=== PATIENT | male | born 1985 | race Caucasian/White ===

== ENCOUNTER → 2021-03-15 13:47 | Outpatient (CLI) | payer OTHER, SELFPAY ==
--- NOTE | 2021-03-15 13:51 | DI.CT.S_ITS ---
PROCEDURE: CT ABDOMEN PELVIS WO/W CON INDICATIONS: Other hydronephrosis TECHNIQUE: Optional 5 mm thick noncontrast images acquired from the diaphragm to the symphysis pubis. After the administration of intravenous contrast, 5 mm thick images acquired from the diaphragm to the symphysis pubis after a 10-minute delay. 2 mm thick coronal and sagittal reformats were then performed of the kidneys and ureters. For radiation dose reduction, the following was used: automated exposure control, adjustment of mA and/or kV according to patient size. COMPARISON: Outside Film, CT, CT ABDOMEN PELVIS WITHOUT CONTRAST, 02/24/2021, 14:40. FINDINGS: Image quality: Excellent. Lung bases: Lung bases are clear. Heart size is normal. Urinary system: Both kidneys are normal in size, without hydronephrosis or nephrolithiasis on pre-contrast images. No perinephric fat stranding. There is normal bilateral renal enhancement. No renal stones identified. There is moderate right-sided hydronephrosis and dilatation of the left ureter with transition to normal caliber ureter in the mid pelvis where the right ureter crosses the right common iliac artery. Focal ureteral wall thickening in the right ureter at the transition zone is less apparent in the current study compared to prior study obtained February 24, 2021 and there are diminished inflammatory changes adjacent to the ureter at this level. There is absence of contrast opacification of the right ureter secondary to obstruction. There is normal contrast opacification of the left ureter. Yet left ureter follows a normal course has normal caliber. No filling defects identified within the left renal collecting system. Bladder wall thickness is normal. No calcified bladder stones. Other solid organs: Liver is normal in size and enhancement. Diffuse fatty infiltration of the liver. Gallbladder is within normal limits. Biliary system is non dilated. Pancreas enhances normally. Spleen is normal in size and enhancement. No adrenal nodules. Peritoneum and bowel: Bowel loops demonstrate normal wall thickness and caliber. Right colon and terminal ileum mural fatty metaplasia stable compared to the prior exam. No free fluid or air. Nodes and vessels: No retroperitoneal or mesenteric adenopathy by size criteria. Aorta and inferior vena cava are normal in size. Abdominal wall: No ventral hernias. Pelvis: No pathologic free pelvic fluid. No inguinal hernias or adenopathy. Bones: No suspicious bony lesions. Small rounded sclerotic foci in the proximal femurs stable compared to prior exam may represent bone islands. No vertebral body compression fractures. IMPRESSION: 1. Moderate right-sided hydroureteronephrosis slightly diminished in severity compared to February 24, 2021. Focal ureteral wall prominence and mild inflammation involving the distal right ureter persists, but has decreased compared to prior exam. Finding could represent inflammatory stricture or neoplastic process. Recommend retrograde imaging for opacification of the right ureter at the area of interest. 2. Right colon and terminal ileum mural fatty metaplasia. Finding is nonspecific but can be associated with inflammatory bowel disease. 3. Hepatic steatosis. Dictated by: Loraine Rodriguez MD, PhD on 03/15/2021 at 15:52 Approved by: Loraine Rodriguez MD, PhD on 03/15/2021 at 16:05
== END ==
PROVIDERS: PCP Physician Assistant Medical; Referring Provider Physician Assistant Medical; Visit Provider Physician Assistant Medical
DX: N13.39 Other hydronephrosis (principal); K76.0 Fatty (change of) liver, not elsewhere classified
CPT/HCPCS: 74178

== ENCOUNTER → 2021-03-26 14:13 | Outpatient (CLI) | payer OTHER, SELFPAY ==
--- NOTE | 2021-03-26 | DI.NM.S_ITS ---
PROCEDURE: NM RENAL FUNCTION W LASIX RADIOPHARMACEUTICAL: 10.3 mCi Tc-99m MAG3 IV and 40 mg furosemide IV. INDICATIONS: Unspecified hydronephrosis TECHNIQUE: The patient was hydrated orally before the examination was begun. After intravenous administration of Tc-99m MAG3, posterior abdominal radionuclide angiogram and sequential (1 minute each frame) renal images were obtained. A time-activity curve for each kidney was generated and analyzed. To evaluate for obstruction, the patient was given 40 mg furosemide via slow intravenous injection after the start of the examination. Sequential images were obtained for up to an additional 20 minutes. COMPARISON: [facility], CT, CT ABDOMEN PELVIS WO/W CON, 03/15/2021, 13:54. Outside Film, CT, CT ABDOMEN PELVIS WITHOUT CONTRAST, 02/24/2021, 14:40. FINDINGS: Perfusion: There is normal vascular flow to both kidneys. Morphology: Both kidneys are normal in size and shape. The right renal collecting system is dilated. The ureters and bladder fill with tracer, and appear normal. Function: The right kidney kidney demonstrates delayed cortical tracer uptake, with [id number] activity ranging greater than 5 minutes. The left kidney kidney demonstrates normal cortical tracer uptake and excretion, with [id number]-[id number] activity at 3 minutes. The right kidney contributes 30.2% of total renal function. The left kidney contributes 69.8% of total renal function. Lasix stimulation: After diuretic administration, mildly delayed clearance of activity from the right renal collecting system. The half-time of emptying tracer activity from the right pelvicaliceal system is approximately 15 minutes. There is prompt clearance of tracer activity from the renal collecting by the left kidney. The half-time of emptying from the left pelvicaliceal system is 8.4 minutes. Normal emptying half-times are less than 10 minutes; borderline ranges are from 10 to 20 minutes. IMPRESSION: 1. Moderately right hydronephrosis consistent with right UPJ obstruction. The T1/2 for the right kidney is approximately 15 minutes. There is moderately decreased right renal function. 2. Normal left renal function. 3. The right kidney contributes 30.2% of total renal function. The left kidney contributes 69.8% of total renal function. Dictated by: Barney Acevedo M.D. on 03/27/2021 at 10:59 Approved by: Barney Acevedo M.D. on 03/27/2021 at 12:01
== END ==
PROVIDERS: PCP Physician Assistant Medical; Referring Provider Urology; Visit Provider Urology
DX: N13.30 Unspecified hydronephrosis (principal)
CPT/HCPCS: 78708; A9562

== ENCOUNTER → 2021-04-05 10:30 | Outpatient (CLI) | payer OTHER, SELFPAY ==
[2021-04-05 11:17] LABS: COVID19 -Nasal RAPID Negative (Negative)
== END ==
PROVIDERS: PCP Physician Assistant Medical; Visit Provider Family Medicine Sleep Medicine
DX: Z20.822 Contact with and (suspected) exposure to COVID-19 (principal)
CPT/HCPCS: 87635; C9803

== ENCOUNTER → 2021-07-16 15:32 | Outpatient (CLI) | payer OTHER, SELFPAY | PROVIDERS: PCP Physician Assistant Medical; Referring Provider Family Medicine; Visit Provider Family Medicine | DX: R10.9 Unspecified abdominal pain (principal); S49.91XA Unspecified injury of right shoulder and upper arm, initial encounter; Z53.20 Procedure and treatment not carried out because of patient's decision for unspecified reasons ==

== ENCOUNTER → 2021-07-20 13:38 | Outpatient (CLI) | payer OTHER, SELFPAY ==
--- NOTE | 2021-07-20 13:40 | DI.MRI.S_ITS ---
PROCEDURE: MR ABDOMEN PELVIS WO CON, utilizing coronal T2 haste, in-phase and him-qf-jdvak gradient T1 imaging. Fat suppressed T1 imaging was performed, and volume acquisition imaging in coronal plane through the retroperitoneum also was obtained. T1 vibe imaging and coronal haste imaging through the lower abdomen and pelvis were obtained, with additional axial T1 and T2 scanning through the abdomen inferiorly and the pelvis. COMPARISON: [facility], [place], [place] RENAL FUNCTION W LASIX, 03/26/2021, 14:28. Outside Film, CT, CT ABDOMEN PELVIS WITHOUT CONTRAST, 02/24/2021, 14:40. [facility], CT, CT ABDOMEN PELVIS WO/W CON, 03/15/2021, 13:54. INDICATIONS: Unspecified abdominal pain FINDINGS: The prior CT scanning had raised significant concern for right renal collecting system and ureteral dilatation. A subsequent nuclear medicine renogram reports resolution of the ureteral dilatation on the right, and asymmetric reduced right renal function. Approximately 30% of total renal function is provided from the right kidney. The current study shows [id number] right-sided hydronephrosis but no dilatation or mass at the ureteral pelvic junction or calculus in that area. The right ureter is no longer dilated from the ureteropelvic junction inferiorly. The left ureter and collecting system is not dilated, and the bladder appears normal. The appearance is consistent with a long-standing ureteropelvic junction stenosis, but without mass lesion involving the distal ureter as the underlying cause of the prior right-sided hydronephrosis and hydroureter from earlier CT scanning. Note is made of prominent signal suppression on out of phase gradient T1 imaging consistent with fat infiltration throughout the liver, prominent. Hepatic steatosis without mass lesion is the presumed cause. Through the abdomen and pelvis no vascular or lymph node abnormality is found. IMPRESSION: 1. Resolution of CT-detected hydroureter, but there is a persistent pattern of ureteropelvic junction stenosis given persistence of mild to moderate right-sided hydronephrosis. 2. Prominent hepatic steatosis, etiology indeterminate. Dictated by: Ambrocio Luo M.D. on 07/22/2021 at 14:42 Approved by: Ambrocio Luo M.D. on 07/22/2021 at 14:57
== END ==
PROVIDERS: PCP Physician Assistant Medical; Referring Provider Family Medicine; Visit Provider Family Medicine
DX: R10.9 Unspecified abdominal pain (principal); N13.5 Crossing vessel and stricture of ureter without hydronephrosis; K76.0 Fatty (change of) liver, not elsewhere classified
CPT/HCPCS: 72195

== ENCOUNTER 2022-03-20 16:03 | Emergency (ER) | payer OTHER, SELFPAY ==
[2022-03-20] VITALS (23 sets, daily range): BP systolic 73–95; BP diastolic 40–55; PULSE 65–78; RESP 12–46; TEMP 35.6–36.2; O2SAT 97–100
[2022-03-20] MEDS: PANTOPRAZOLE 40 MG VIAL IV (16:53)
[2022-03-20] MEDS: OCTREOTIDE 100 MCG/ML VIAL IV (16:53)
[2022-03-20] MEDS: SODIUM CHLORIDE 0.9% 1,000 ML 150 ML IV (16:54)
[2022-03-20] MEDS: SODIUM CHLORIDE 0.9% 1,000 ML 1000 ML IV (16:54)
[2022-03-20 17:15] LABS: Hemoglobin 8.5 g/dL (13.5-17.5); Mean Corpuscular HGB Conc 35.3 % (30-36); Mean Corpuscular Hemoglobin 35.3 PG (26-34); Platelet Count 226 X10^3/uL (150-400); Red Blood Cell Count 2.41 X10^6/uL (4.5-5.9); Red Cell Distribution Width 16.2 % (11.6-14.8); White Blood Cell Count 9.4 X10^3/uL (4.5-11.0)
[2022-03-20 17:16] LABS: Add Manual Diff / Slide Review YES; Hematocrit 24.1 % (41-53)
[2022-03-20 17:18] LABS: PTT Partial Thromboplastin Tim 47 SECONDS (26.4-36.2)
--- NOTE | 2022-03-20 17:21 | ED_ITS ---
HPI - Weakness General Chief complaint: Weakness Stated complaint: Yellow Skin/Weakness/Dizziness/Not Eating or Sleep Time Seen by Provider: 03/20/22 16:22 Source: patient Mode of arrival: Wheelchair Limitations: other (He is not answering most questions.) History of Present Illness HPI Narrative: Patient is 36-year-old member the [employer]. He drinks large amounts of alcohol daily. He was recently discharged on a medical board. His just returned home. He is jaundiced. He says he quit drinking. He has dried blood in his nose and mouth. He says he is vomiting, he says he did not vomit blood. He ar merlyn with his , due to the jaundice. We have no medical records. She reports that he has 5 white matter lesions on his brain, possibly MS. 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 Diagnosis is not yet clarified. He takes amlodipine for hypertension, he has no other prescription medications. He denies experiencing GI bleeds in the past. Related Data Home Medications Medication Instructions Recorded Confirmed lisinopril 20 mg tablet 20 mg PO DAILY 02/05/21 02/05/21 Allergies Allergy/AdvReac Type Severity Reaction Status Date / Time No Known Drug Allergies Allergy Verified 03/20/22 16:29 Review of Systems Review of Systems Narrative: History of primary from the , although the patient does speak briefly. No additional details are available. Patient History Medical History (Updated 03/20/22 @ 20:41 by Sylvester Gonzalez MD) Colon polyps Essential hypertension Excessive daytime sleepiness Fatigue due to sleep pattern disturbance Obstructive sleep apnea, adult Snoring Surgical History (Updated 03/20/22 @ 18:02 by Sylvester Gonzalez MD) H/O colonoscopy Family History Family/Other Hypertension Dementia Mother Insomnia Restless leg Hypertension Anxiety Family/Other Insomnia Social History Smoking Status: Former smoker Smoking Status: Former smoker alcohol intake frequency: 3 or more drinks per day Exam Initial Vital Signs Initial Vital Signs: Vital Signs Blood Pressure 82/47 L 03/20/22 16:25 Const General: acute distress and ill appearing Nutritional Appearance: average body habitus HENMT Head: normocephalic and atraumatic Ears: TM's normal bilaterally Nose: other (Dried blood, both nares) Face and sinus: normal facial exam Mouth: other (Old blood in his gums and teeth. No acute bleeding. No oral lesions.) Teeth and gingiva: dentition normal Throat: posterior oropharynx normal Eyes Conjunctivae: other (Icterus is present) Sclera: scleral abnormality Pupils: PERRL EOM: EOM intact bilaterally Neck Neck: No lymphadenopathy and No JVD Thyroid: thyroid normal Chest Chest: normal inspection of the chest Resp Auscultation: clear to auscultation bilaterally Cardio Rate: regular rate Rhythm: regular rhythm Heart Sounds: S1 normal, S2 normal, no click and no murmurs GI Other: Slight upper abdominal tenderness without distention, guarding or rebound. Palpable hepatosplenomegaly. Normal bowel sounds. Rectal exam: Normal rectal tone. Melena is present. Guaiac positive. Back/Spine/Pelvis Back: normal to inspection Skin General: jaundice Neuro General: patient alert, patient oriented x3 and no focal motor deficits Speech: speech normal (However, communication is normal.) Extrem General: no pedal edema and no calf tenderness Course Course Course Narrative: The patient arrives with jaundice, hypotension (sys BP 80) in blood in his mouth and nares. He is guaiac positive. He was immediately managed for bleeding varices. Multiple IVs were obtained. Was giving Protonix. Octeratide bolus followed by a drip was started. Zosyn was given. Normal saline bolus was initiated, replaced with LR once hypernatremia was discovered. 2 units PRBC, and FFP were ordered. Calcium gluconate was given. Head CT is benign. His noncontrast CT of chest/abdomen/ pelvis reveals severe hepatomegaly. H/H initially 8.5/24.1 decreased to 7.6/21.5 with hydration. This is likely dilution with the IV fluids given. Transfusions had already been initiated. The patient has multiple elect in the right abnormalities, renal failure, and significant elevated LFTs. His lactic acid level is elevated. His blood pressure improved to 86 prior to transfer. Pressors are contraindicated. There has been no suggestive acute bleeding during his ER stay. The patient needs to be in a facility with an color drum worker, as well as a steamblaster. [facility] in [place] was contacted. The patient was discussed with Dr. Gómez, color drum worker. The patient has been accepted in transfer. Orders Ordered: ED Orders 04/21/22 16:15 Ammonia (NH3) Stat Complete Blood Count AUTO DIFF Stat Comprehensive Metabolic Panel Stat ETOH [Ethanol (ETOH)] Stat FFP [Fresh Frozen Plasma] Stat Lactate (Lactic Acid) Stat Lipase Stat PRBC [Packed Cells] Stat PTT [Partial Thromboplastin Time] Stat Prothrombin Time INR Stat Type and Screen Stat 03/20/22 16:35 COVID19 -Nasal RAPID/Pre-Proc Stat 03/20/22 17:45 CT head/brain wo con Stat 03/20/22 17:54 CT chest abd pel wo con Stat 03/20/22 18:20 CBC Auto Diff [Complete Blood Count AUTO DIFF] Stat 03/20/22 19:00 ABG [Arterial Blood Gas] Stat Sodium Chloride (Normal Saline 0.9%) 1,000 mls @ 150 mls/hr IV CONT LUPE Last Infusion: 03/20/22 20:13 Dose: 0 mls/hr Documented by: Admin: 03/20/22 16:54 Dose: 150 mls/hr Documented by: MARYBETH Sodium Chloride (Normal Saline 0.9%) 1,000 mls @ 1,000 mls/hr IV BOLUS PRN PRN Reason: Fluid replacement Last Infusion: 03/20/22 19:08 Dose: 0 mls/hr Documented by: Admin: 03/20/22 16:54 Dose: 1,000 mls/hr Documented by: MARYBETH Octreotide Acetate 500 mcg/ (Sodium Chloride) 101 mls @ 5.05 mls/hr IV CONT LUPE ; Protocol Last Infusion: 03/20/22 20:13 Dose: 0 mcg/hr, 0 mls/hr Documented by: Admin: 03/20/22 17:29 Dose: 25 mcg/hr, 5.05 mls/hr Documented by: ZARA Discontinued Medications Ceftriaxone Sodium 2,000 mg/ (Sodium Chloride) 100 mls @ 200 mls/hr IV NOW ONE Stop: 03/20/22 17:14 Last Admin: 03/20/22 17:41 Dose: Not Given Documented by: ZARA Piperacillin Sod/Tazobactam (Sod 4.5 gm/ Sodium Chloride) 100 mls @ 200 mls/hr IV NOW ONE Stop: 03/20/22 17:42 Last Infusion: 03/20/22 19:23 Dose: 0 mls/hr Documented by: Admin: 03/20/22 18:34 Dose: 200 mls/hr Documented by: ZARA Lactated Ringer's (Lactated Ringers) 1,000 mls @ 1,000 mls/hr IV BOLUS ONE Stop: 03/20/22 19:48 Last Infusion: 03/20/22 20:14 Dose: 0 mls/hr Documented by: Admin: 03/20/22 19:24 Dose: 1,000 mls/hr Documented by: ZARA Calcium Gluconate 4.65 meq/ (Sodium Chloride) 60 mls @ 180 mls/hr IV NOW ONE Stop: 03/20/22 19:09 Last Infusion: 03/20/22 19:47 Dose: 0 mls/hr Documented by: Admin: 03/20/22 19:22 Dose: 180 mls/hr Documented by: ZARA Octreotide Acetate (Octreotide 100 Mcg/Ml Vial) 100 mcg IV NOW ONE Stop: 03/20/22 16:41 Last Admin: 03/20/22 16:53 Dose: 100 mcg Documented by: MARYBETH Octreotide Acetate (Octreotide 100 Mcg/Ml Vial) 50 mcg IV Q1HR LUPE Last Admin: 03/20/22 20:17 Dose: Not Given Documented by: MARYBETH Pantoprazole Sodium (Pantoprazole 40 Mg Vial) 40 mg IV NOW ONE Stop: 03/20/22 16:39 Last Admin: 03/20/22 16:53 Dose: 40 mg Documented by: MARYBETH Vital Signs Vital signs: Vital Signs - 8 hr 03/20/22 16:25 03/20/22 16:27 03/20/22 16:29 Temperature 96.0 F L Pulse Rate 78 73 Respiratory Rate 17 12 Blood Pressure 82/47 L 84/50 L 84/50 L Pulse Oximetry 99 100 03/20/22 16:30 03/20/22 16:38 03/20/22 16:45 Temperature Pulse Rate 74 70 69 Respiratory Rate 15 17 16 Blood Pressure 80/46 L 81/48 L 78/48 L Pulse Oximetry 100 100 100 03/20/22 17:00 03/20/22 17:15 03/20/22 17:30 Temperature Pulse Rate 71 65 67 Respiratory Rate 22 46 H 36 H Blood Pressure 90/51 L 76/40 L 73/40 L Pulse Oximetry 99 99 99 03/20/22 17:45 03/20/22 17:56 03/20/22 18:00 Temperature Pulse Rate 72 76 77 Respiratory Rate 20 26 H 22 Blood Pressure 83/46 L 86/48 L 88/51 L Pulse Oximetry 99 100 99 03/20/22 18:12 03/20/22 18:15 03/20/22 18:30 Temperature Pulse Rate 74 72 75 Respiratory Rate 13 13 12 Blood Pressure 92/55 L 92/54 L 95/52 L Pulse Oximetry 99 99 98 03/20/22 18:45 03/20/22 18:50 03/20/22 18:59 Temperature 96.7 F L 97.2 F L Pulse Rate 72 71 71 Respiratory Rate 22 28 H 14 Blood Pressure 86/53 L 86/53 L 90/51 L Pulse Oximetry 98 03/20/22 19:00 03/20/22 19:15 03/20/22 19:30 Temperature Pulse Rate 71 72 72 Respiratory Rate 24 22 16 Blood Pressure 90/54 L 81/45 L 81/47 L Pulse Oximetry 97 98 98 03/20/22 19:45 03/20/22 19:54 Temperature Pulse Rate 74 74 Respiratory Rate 14 16 Blood Pressure 89/51 L 94/50 L Pulse Oximetry 98 98 MDM - Weakness Lab Data Result diagrams: 03/20/22 18:20 03/20/22 16:15 Labs: Lab Results 03/20/22 03/20/22 03/20/22 Range/Units 16:15 16:15 16:15 WBC 9.4 (4.5-11.0) X10^3/uL RBC 2.41 L (4.5-5.9) X10^6/uL Hgb 8.5 L (13.5-17.5) g/dL Hct 24.1 L (41-53) % MCV 100.0 (80-100) fL MCH 35.3 H (26-34) PG MCHC 35.3 (30-36) % RDW 16.2 H (11.6-14.8) % Plt Count 226 (150-400) X10^3/uL Neut % (Auto) Not Reportable Lymph % (Auto) Not Reportable [place] % (Auto) Not Reportable Eos % (Auto) Not Reportable Baso % (Auto) Not Reportable Lymph # (Auto) Not Reportable [place] # (Auto) Not Reportable Baso # (Auto) Not Reportable Total Counted 100 Seg Neutrophils % 73.0 H (38-70) % Band Neutrophils % 9.0 H (3-7) % Lymphocytes % (Manual) 9.0 L (25-45) % Monocytes % (Manual) 9.0 (2-11) % Metamyelocytes % Not Reportable Neutrophils # (Manual) 7708 H (4895-8501) /uL Nucleated RBCs 1 H ( - 0) #/Diff RBC Morphology See below Macrocytosis 2+ H PT 56.0 H (10.1-12.7) SECONDS INR 4.7 H* (0.9-1.3) APTT 47 H (26.4-36.2) SECONDS ABG pH (7.35-7.45) ABG pCO2 (35-45) mmHg ABG pO2 (80-100) mmHg ABG HCO3 (22-26) mmol/L ABG Total CO2 (21-31) mmol/L ABG O2 Saturation (95-100) % ABG Base Excess (-2-2) mmol/L FiO2 Sodium 106 L* (137-145) mmol/L Potassium 5.2 H (3.4-5.1) mmol/L Chloride 62 L* (98-107) mmol/L Carbon Dioxide 8 L* (22-32) mmol/L BUN 101 H (9-20) mg/dL Creatinine 11.07 H* (0.66-1.25) mg/dL Estimated GFR 6 L (>60) mL/min BUN/Creatinine Ratio 9.1 (6-22) Glucose 82 (70-100) mg/dL Lactate (0.7-2.1) mmol/L Calcium 6.8 L (8.4-10.2) mg/dL Total Bilirubin 25.8 H (0.2-1.3) mg/dL AST 1250 H (17-59) IU/L ALT 377 H (<50) IU/L Alkaline Phosphatase 351 H (38-126) U/L Ammonia (9-30) umol/L Total Protein 7.0 (6.3-8.2) g/dL Albumin 3.3 L (3.5-5.0) g/dL Globulin 3.7 (1.7-4.1) g/dL Albumin/Globulin Ratio 0.9 L (1.0-2.8) Lipase 665 H (23-300) U/L Ethyl Alcohol ( - 10) mg/dL SARS-CoV-2 (PCR) (Negative) Blood Type Antibody Screen Crossmatch 03/20/22 03/20/22 03/20/22 Range/Units 16:15 16:15 16:15 WBC (4.5-11.0) X10^3/uL RBC (4.5-5.9) X10^6/uL Hgb (13.5-17.5) g/dL Hct (41-53) % MCV (80-100) fL MCH (26-34) PG MCHC (30-36) % RDW (11.6-14.8) % Plt Count (150-400) X10^3/uL Neut % (Auto) Lymph % (Auto) [place] % (Auto) Eos % (Auto) Baso % (Auto) Lymph # (Auto) [place] # (Auto) Baso # (Auto) Total Counted Seg Neutrophils % (38-70) % Band Neutrophils % (3-7) % Lymphocytes % (Manual) (25-45) % Monocytes % (Manual) (2-11) % Metamyelocytes % Neutrophils # (Manual) (9782-2282) /uL Nucleated RBCs ( - 0) #/Diff RBC Morphology Macrocytosis PT (10.1-12.7) SECONDS INR (0.9-1.3) APTT (26.4-36.2) SECONDS ABG pH (7.35-7.45) ABG pCO2 (35-45) mmHg ABG pO2 (80-100) mmHg ABG HCO3 (22-26) mmol/L ABG Total CO2 (21-31) mmol/L ABG O2 Saturation (95-100) % ABG Base Excess (-2-2) mmol/L FiO2 Sodium (137-145) mmol/L Potassium (3.4-5.1) mmol/L Chloride (98-107) mmol/L Carbon Dioxide (22-32) mmol/L BUN (9-20) mg/dL Creatinine (0.66-1.25) mg/dL Estimated GFR (>60) mL/min BUN/Creatinine Ratio (6-22) Glucose (70-100) mg/dL Lactate 8.5 H* (0.7-2.1) mmol/L Calcium (8.4-10.2) mg/dL Total Bilirubin (0.2-1.3) mg/dL AST (17-59) IU/L ALT (<50) IU/L Alkaline Phosphatase (38-126) U/L Ammonia 25 (9-30) umol/L Total Protein (6.3-8.2) g/dL Albumin (3.5-5.0) g/dL Globulin (1.7-4.1) g/dL Albumin/Globulin Ratio (1.0-2.8) Lipase (23-300) U/L Ethyl Alcohol ( - 10) mg/dL SARS-CoV-2 (PCR) (Negative) Blood Type A Positive Antibody Screen Negative Crossmatch See Detail 03/20/22 03/20/22 03/20/22 Range/Units 16:15 16:35 18:20 WBC 10.8 (4.5-11.0) X10^3/uL RBC 2.15 L (4.5-5.9) X10^6/uL Hgb 7.6 L (13.5-17.5) g/dL Hct 21.5 L (41-53) % MCV 99.9 (80-100) fL MCH 35.3 H (26-34) PG MCHC 35.4 (30-36) % RDW 17.0 H (11.6-14.8) % Plt Count 190 (150-400) X10^3/uL Neut % (Auto) Not Reportable Lymph % (Auto) Not Reportable [place] % (Auto) Not Reportable Eos % (Auto) Not Reportable Baso % (Auto) Not Reportable Lymph # (Auto) Not Reportable [place] # (Auto) Not Reportable Baso # (Auto) Not Reportable Total Counted 100 Seg Neutrophils % 81.0 H (38-70) % Band Neutrophils % 10.0 H (3-7) % Lymphocytes % (Manual) (25-45) % Monocytes % (Manual) 8.0 (2-11) % Metamyelocytes % 1.0 H Neutrophils # (Manual) 9828 H (1156-5597) /uL Nucleated RBCs ( - 0) #/Diff RBC Morphology See below Macrocytosis 2+ H PT (10.1-12.7) SECONDS INR (0.9-1.3) APTT (26.4-36.2) SECONDS ABG pH (7.35-7.45) ABG pCO2 (35-45) mmHg ABG pO2 (80-100) mmHg ABG HCO3 (22-26) mmol/L ABG Total CO2 (21-31) mmol/L ABG O2 Saturation (95-100) % ABG Base Excess (-2-2) mmol/L FiO2 Sodium (137-145) mmol/L Potassium (3.4-5.1) mmol/L Chloride (98-107) mmol/L Carbon Dioxide (22-32) mmol/L BUN (9-20) mg/dL Creatinine (0.66-1.25) mg/dL Estimated GFR (>60) mL/min BUN/Creatinine Ratio (6-22) Glucose (70-100) mg/dL Lactate (0.7-2.1) mmol/L Calcium (8.4-10.2) mg/dL Total Bilirubin (0.2-1.3) mg/dL AST (17-59) IU/L ALT (<50) IU/L Alkaline Phosphatase (38-126) U/L Ammonia (9-30) umol/L Total Protein (6.3-8.2) g/dL Albumin (3.5-5.0) g/dL Globulin (1.7-4.1) g/dL Albumin/Globulin Ratio (1.0-2.8) Lipase (23-300) U/L Ethyl Alcohol < 10 ( - 10) mg/dL SARS-CoV-2 (PCR) Negative (Negative) Blood Type Antibody Screen Crossmatch 03/20/22 Range/Units 19:00 WBC (4.5-11.0) X10^3/uL RBC (4.5-5.9) X10^6/uL Hgb (13.5-17.5) g/dL Hct (41-53) % MCV (80-100) fL MCH (26-34) PG MCHC (30-36) % RDW (11.6-14.8) % Plt Count (150-400) X10^3/uL Neut % (Auto) Lymph % (Auto) [place] % (Auto) Eos % (Auto) Baso % (Auto) Lymph # (Auto) [place] # (Auto) Baso # (Auto) Total Counted Seg Neutrophils % (38-70) % Band Neutrophils % (3-7) % Lymphocytes % (Manual) (25-45) % Monocytes % (Manual) (2-11) % Metamyelocytes % Neutrophils # (Manual) (7151-0391) /uL Nucleated RBCs ( - 0) #/Diff RBC Morphology Macrocytosis PT (10.1-12.7) SECONDS INR (0.9-1.3) APTT (26.4-36.2) SECONDS ABG pH 7.34 L (7.35-7.45) ABG pCO2 28.5 L (35-45) mmHg ABG pO2 105 H (80-100) mmHg ABG HCO3 15 L (22-26) mmol/L ABG Total CO2 16 L (21-31) mmol/L ABG O2 Saturation 98 (95-100) % ABG Base Excess -11.0 L (-2-2) mmol/L FiO2 21 Sodium (137-145) mmol/L Potassium (3.4-5.1) mmol/L Chloride (98-107) mmol/L Carbon Dioxide (22-32) mmol/L BUN (9-20) mg/dL Creatinine (0.66-1.25) mg/dL Estimated GFR (>60) mL/min BUN/Creatinine Ratio (6-22) Glucose (70-100) mg/dL Lactate (0.7-2.1) mmol/L Calcium (8.4-10.2) mg/dL Total Bilirubin (0.2-1.3) mg/dL AST (17-59) IU/L ALT (<50) IU/L Alkaline Phosphatase (38-126) U/L Ammonia (9-30) umol/L Total Protein (6.3-8.2) g/dL Albumin (3.5-5.0) g/dL Globulin (1.7-4.1) g/dL Albumin/Globulin Ratio (1.0-2.8) Lipase (23-300) U/L Ethyl Alcohol ( - 10) mg/dL SARS-CoV-2 (PCR) (Negative) Blood Type Antibody Screen Crossmatch Imaging Data CT scan - head: Radiologist Impression: Normal study. Noncontrast CT chest/abdomen/pelvis:: Radiologist Impression: After the administration of oral contrast, 5 mm thick sections acquired from the lung apices to the symphysis pubis.? 5 mm thick coronal and sagittal reformats acquired, with additional 7 mm coronal MIP reformats through the lungs.? For radiation dose reduction, the following was used:? automated exposure control, adjustment of mA and/or kV according to patient size.? ? COMPARISON:? None. ? FINDINGS: ? Chest: ? Cardiovascular:? Heart size is normal.? No evidence of pulmonary embolism, aortic aneurysm or dissection. ? Lungs and pleural spaces:? The lung dennison are clear without nodule, infiltrate or interstitial prominence.? Pleural spaces show no effusion or pneumothorax. ? Lymph nodes:? No mediastinal, hilar or axillary adenopathy. ? Mediastinum:? Unremarkable.? No hiatal hernia.? Thyroid within normal limits. ? Chest Wall and Bones:? Unremarkable.? No acute fracture. ? Abdomen and Pelvis: ? Liver:? Massive hepatomegaly, 29.0 cm.? There is advanced diffuse hepatic fatty infiltration with focal fatty sparing noted as well. Biliary system:? No calcified cholelithiasis or pericholecystic inflammation.? No intra or extrahepatic bile duct dilatation. ? Pancreas:? Unremarkable without mass or inflammation evident. ? Spleen:? Normal in size and density. ? Adrenals:? Normal morphology and density. ? Reproductive system:? Unremarkable as visualized. ? Urinary system:? Normal renal size and attenuation. No renal calculi, hydronephrosis, or solid mass present.? Urinary bladder unremarkable. ? Gastrointestinal system:? Right colonic wall thickening with pericolonic inflammatory change consistent with right-sided colitis.? No pneumatosis present.? Bowel wall fatty infiltration noted involving the duodenum reflecting prior inflammatory change.? No free air or bowel obstruction ? Lymph nodes:? No mesenteric or retroperitoneal adenopathy. ? Peritoneal spaces: ? No free air.? Mild free fluid present in the abdomen and pelvis.? ? Vasculature:? The IVC, aorta and iliac vasculature are unremarkable. ? Abdominal wall:? Abdominal wall intact without evidence of ventral or inguinal hernias. ? Musculoskeletal:? Normal bone mineralization.? No acute fractures.? ? IMPRESSION: ? 1.? Acute right-sided colitis is probably infectious or inflammatory.? No pneumatosis to suggest ischemic colitis. ? 2. Massive hepatomegaly and advanced hepatic fatty infiltration. ? 3. Unremarkable CT of the chest ? ECG Data Attestation: I personally reviewed and interpreted this ECG as follows: (Normal sinus rhythm rate 71 beats per minute. Normal intervals. 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 No ectopy. No acute ST T wave changes.) Critical Care Time Critical Care Time Critical Care Time: Yes Total Critical Care Time: 55 Attestation: Time included initial patient assessment, review of EKG, radiology and lab data. Multiple clinical decisions were required. The clinical situation was discussed with the patient as well as the . The case was discussed with the accepting physician, transfer was arranged. Discharge Plan Departure Patient Disposition: [facility] Clinical Impression: Bleeding esophageal varices, Sepsis, Acute upper GI bleed, Alcoholism, Acute hepatic failure, Renal failure, Electrolyte abnormality Prescriptions: No Action lisinopril 20 mg tablet 20 mg PO DAILY 0RF Referrals: Miscellaneous,DoctorMD [Primary Care Provider] -
[2022-03-20 17:22] LABS: Alanine Aminotransferase 377 IU/L (<50); Albumin 3.3 g/dL (3.5-5.0); Albumin Globulin Ratio 0.9 (1.0-2.8); Alkaline Phosphatase 351 U/L (38-126); Bilirubin Total 25.8 mg/dL (0.2-1.3); Blood Urea Nitrogen 101 mg/dL (9-20); Calcium 6.8 mg/dL (8.4-10.2); Carbon Dioxide 8 mmol/L (22-32); Chloride 62 mmol/L (98-107); Globulin 3.7 g/dL (1.7-4.1); Glucose 82 mg/dL (70-100); HEMOLYSIS < 15 (0-50); Lipase 665 U/L (23-300); Potassium 5.2 mmol/L (3.4-5.1)
[2022-03-20 17:23] LABS: Ammonia (NH3) 25 umol/L (9-30); Ethanol (ETOH) < 10 mg/dL
[2022-03-20] MEDS: OCTREOTIDE 500 MCG in SODIUM CHLORIDE 0.9% 100 ML 5.05 ML IV (17:29)
[2022-03-20 17:31] LABS: Lactate (Lactic Acid) 8.5 mmol/L (0.7-2.1)
[2022-03-20 17:32] LABS: COVID19 -Nasal RAPID Negative (Negative)
[2022-03-20 17:35] LABS: INR 4.7 (0.9-1.3)
--- NOTE | 2022-03-20 17:37 | PC.NURSE ---
pt has dried blood noted in nares and blood on lips and teeth on arrival.pt is jaundice. states she has been out of town for about 2 months, pt states he has had color changes for about 2 weeks. pt states he quit drinking about 2 weeks ago, denies DT's. pt has bruise on rt forearm. c/o pain to rt shoulder.
[2022-03-20 17:44] LABS: BUN Creatinine Ratio 9.1 (6-22); Estimated Glomerular Filt Rate 6 mL/min (>60)
--- NOTE | 2022-03-20 17:45 | DI.CT.S_ITS ---
PROCEDURE: CT HEAD/BRAIN WO CON INDICATIONS: GI bleed. Altered mental status. TECHNIQUE: Noncontrast 5 mm thick angled axial sections acquired from the foramen magnum to the vertex, with coronal and sagittal reformats. For radiation dose reduction, the following was used: automated exposure control, adjustment of mA and/or kV according to patient size. COMPARISON: None. FINDINGS: Image quality: Excellent. CSF spaces: Basal cisterns are patent. No extra-axial fluid collections. Ventricles are normal in size and shape. Brain: No midline shift. No intracranial masses or hemorrhage. Higginbotham-white matter interface is normal. Skull and face: Calvarium and visualized facial bones are intact, without suspicious lesions. Sinuses: Visualized sinuses and mastoids are clear. IMPRESSION: Normal CT brain Approved by: Primo Godoy M.D. on 03/20/2022 at 17:29
[2022-03-20 17:48] LABS: Neutrophils Absolute Manual 7708 /uL (3000-5900); Nucleated Red Blood Cells 1 #/Diff; Total Cells Counted 100
[2022-03-20 17:49] LABS: Macrocytosis 2+
[2022-03-20 17:51] LABS: Aspartate Aminotransferase 1250 IU/L (17-59)
[2022-03-20 17:53] LABS: Sodium 106 mmol/L (137-145)
--- NOTE | 2022-03-20 17:54 | DI.CT.S_ITS ---
PROCEDURE: CT CHEST ABD PEL WO CON INDICATIONS: jaundice, hypotension, renal failure, high INR, TECHNIQUE: After the administration of oral contrast, 5 mm thick sections acquired from the lung apices to the symphysis pubis. 5 mm thick coronal and sagittal reformats acquired, with additional 7 mm coronal MIP reformats through the lungs. For radiation dose reduction, the following was used: automated exposure control, adjustment of mA and/or kV according to patient size. COMPARISON: None. FINDINGS: Chest: Cardiovascular: Heart size is normal. No evidence of pulmonary embolism, aortic aneurysm or dissection. Lungs and pleural spaces: The lung dennison are clear without nodule, infiltrate or interstitial prominence. Pleural spaces show no effusion or pneumothorax. Lymph nodes: No mediastinal, hilar or axillary adenopathy. Mediastinum: Unremarkable. No hiatal hernia. Thyroid within normal limits. Chest Wall and Bones: Unremarkable. No acute fracture. Abdomen and Pelvis: Liver: Massive hepatomegaly, 29.0 cm. There is advanced diffuse hepatic fatty infiltration with focal fatty sparing noted as well. Biliary system: No calcified cholelithiasis or pericholecystic inflammation. No intra or extrahepatic bile duct dilatation. Pancreas: Unremarkable without mass or inflammation evident. Spleen: Normal in size and density. Adrenals: Normal morphology and density. Reproductive system: Unremarkable as visualized. Urinary system: Normal renal size and attenuation. No renal calculi, hydronephrosis, or solid mass present. Urinary bladder unremarkable. Gastrointestinal system: Right colonic wall thickening with pericolonic inflammatory change consistent with right-sided colitis. No pneumatosis present. Bowel wall fatty infiltration noted involving the duodenum reflecting prior inflammatory change. No free air or bowel obstruction Lymph nodes: No mesenteric or retroperitoneal adenopathy. Peritoneal spaces: No free air. Mild free fluid present in the abdomen and pelvis. Vasculature: The IVC, aorta and iliac vasculature are unremarkable. Abdominal wall: Abdominal wall intact without evidence of ventral or inguinal hernias. Musculoskeletal: Normal bone mineralization. No acute fractures. IMPRESSION: 1. Acute right-sided colitis is probably infectious or inflammatory. No pneumatosis to suggest ischemic colitis. 2. Massive hepatomegaly and advanced hepatic fatty infiltration. 3. Unremarkable CT of the chest Approved by: Primo Godoy M.D. on 03/20/2022 at 17:34
--- NOTE | 2022-03-20 18:27 | PC.NURSE ---
pt on monitor, taken to DI with RN. pt tolerated well. removed items from pockets, zyn, floss, metal wallet, given to spouse, she already has his hat glasses & dog tags.
[2022-03-20] MEDS: PIPERACILLIN/TAZO 4.5 GM in SODIUM CHLORIDE 0.9% 100 ML 200 ML IV (18:34)
[2022-03-20 18:39] LABS: Hematocrit 21.5 % (41-53); Hemoglobin 7.6 g/dL (13.5-17.5); Mean Corpuscular HGB Conc 35.4 % (30-36); Mean Corpuscular Hemoglobin 35.3 PG (26-34); Mean Corpuscular Volume 99.9 fL (80-100); Platelet Count 190 X10^3/uL (150-400); Red Blood Cell Count 2.15 X10^6/uL (4.5-5.9); White Blood Cell Count 10.8 X10^3/uL (4.5-11.0)
[2022-03-20 18:40] LABS: Add Manual Diff / Slide Review YES
[2022-03-20 19:07] LABS: Reflexed Lactate in 2 Hours Y
[2022-03-20] MEDS: CALCIUM GLUCONATE 4.65 MEQ in SODIUM CHLORIDE 0.9% 50 ML 180 ML IV (19:22)
[2022-03-20] MEDS: LACTATED RINGERS 1,000 ML 1000 ML IV (19:24)
[2022-03-20 19:44] LABS: Neutrophils Absolute Manual 9828 /uL (3000-5900); Total Cells Counted 100
[2022-03-20 19:46] LABS: Macrocytosis 2+
[2022-03-20 19:50] LABS: Fractionated Inspired Oxygen 21; HCO3 ABG 15 mmol/L (22-26); Oxygen Saturation ABG 98 % (95-100); PCO2 ABG 28.5 mmHg (35-45); PO2 ABG 105 mmHg (80-100); TCO2 ABG 16 mmol/L (21-31); pH ABG 7.34 (7.35-7.45)
--- NOTE | 2022-03-20 19:50 | PC.NURSE ---
pt has a total of 3 iv's. 1 in the upper right arm, 2 rt wrist and 3 left hand.
--- NOTE | 2022-03-20 19:51 | PC.NURSE ---
pt has been speaking minimally but is oriented.
--- NOTE | 2022-03-25 07:28 | PC.NURSE ---
late entry, PRBC's rec'd from lab and handed over to airlift as they we're leaving the building.
== END 2022-03-20 20:17 | disposition short-term general hospital (02) ==
PROVIDERS: Emergency Provider Emergency Medicine
DX: I85.01 Esophageal varices with bleeding (principal); A41.9 Sepsis, unspecified organism; K92.2 Gastrointestinal hemorrhage, unspecified; F10.20 Alcohol dependence, uncomplicated; Y90.0 Blood alcohol level of less than 20 mg/100 ml; K72.00 Acute and subacute hepatic failure without coma; E87.8 Other disorders of electrolyte and fluid balance, not elsewhere classified; Z87.891 Personal history of nicotine dependence; Z20.822 Contact with and (suspected) exposure to COVID-19
CPT/HCPCS: 36415; 36430; 36600; 70450; 71250; 74176; 80053; 80320; 82140; 82805; 83605; 83690; 85007; 85025; 85610; 85730; 86850; 86900; 86901; 86927; 87635; 93005; 96361; 96365; 96366; 96368; 96375; 96376; 99285; 99291; C9803; P9016; C9113; J0610; J2354; J2543